=== PATIENT | male | born 1995 | race Two or more races ===

== ENCOUNTER 2022-06-21 15:16 | Emergency (ER) | payer SELFPAY ==
[2022-06-21 16:23] LABS: CORONAVIRUS COVID-19 NAA POSITIVE (NEGATIVE); INFLUENZA A NAA NEGATIVE (NEGATIVE); INFLUENZA B NAA NEGATIVE (NEGATIVE)
[2022-06-21] MEDS ORDERED: Albuterol 8 GM Inhaler INH ONE (17:10)
== END 2022-06-21 18:09 | disposition home or self-care (01) ==
LOC: MW.ED 15:16
DX: U07.1 COVID-19 (principal); F17.210 Nicotine dependence, cigarettes, uncomplicated; Z88.5 Allergy status to narcotic agent
CPT/HCPCS: 0240U; 99283; A9270

== ENCOUNTER 2022-07-03 09:23 | Emergency (ER) | payer OTHER ==
[2022-07-03 10:40] LABS: CARBON DIOXIDE,CO2 28.5 mmol/L (21.0-32.0); POTASSIUM,K 4.4 mmol/L (3.5-5.1)
== END 2022-07-03 11:07 | disposition home or self-care (01) ==
LOC: MW.ED 09:23
DX: U07.1 COVID-19 (principal); R53.1 Weakness; Z88.5 Allergy status to narcotic agent; Z90.49 Acquired absence of other specified parts of digestive tract
CPT/HCPCS: 36415; 80053; 85025; 99283

== ENCOUNTER 2022-08-13 18:16 | Emergency (ER) | payer OTHER ==
[2022-08-13] MEDS ORDERED: Tetracaine HCl/PF 0.5% 4 ML Bottle EYEBOTH ONE (18:49)
[2022-08-13] MEDS ORDERED: Erythromycin Base 0.5% Ophth Oint 1 GM Tube EYEBOTH ONE (19:29)
== END 2022-08-13 19:52 | disposition home or self-care (01) ==
LOC: MW.ED 18:16
DX: S05.02XA Injury of conjunctiva and corneal abrasion without foreign body, left eye, initial encounter (principal); Z77.098 Contact with and (suspected) exposure to other hazardous, chiefly nonmedicinal, chemicals; I10 Essential (primary) hypertension; Z88.5 Allergy status to narcotic agent
CPT/HCPCS: 99283; A9270; J3490